=== PATIENT | female | born 1955 | race Caucasian/White ===

== ENCOUNTER 2020-09-24 12:12 | Emergency (ER) | payer OTHER, SELFPAY | END 2020-09-24 13:27 | disposition home or self-care (01) | LOC: CSHERS 12:12 | DX: S20.212A Contusion of left front wall of thorax, initial encounter (principal); W01.198A Fall on same level from slipping, tripping and stumbling with subsequent striking against other object, initial encounter | CPT/HCPCS: 71046 ==